=== PATIENT | female | born 1970 | race Two or more races ===

== ENCOUNTER 2020-10-05 18:18 | Emergency (ER) | payer MEDICAID, OTHER ==
[~2020-10-05] VITALS: Ht 157.5 cm; Wt 89.8 kg
[2020-10-05] MEDS ORDERED: ATORVASTATIN CA20 MG ORAL (18:44)
--- NOTE | 2020-10-05 19:30 | NUR ---
ED Nurse Note: Pt walked into the ED with c/o fall about a week ago. Pt tripped over a hole and fell backward. Pt c/o pain in the posterior head radiating to the neck with dizzy spell. No LOC. Patient fever/chills, N/V/D. Patient is AAOX4 and ambulatory. Used [employer]
--- NOTE | 2020-10-05 19:31 | NUR ---
ED Nurse Note: ERPA at bedside
[2020-10-05 19:40] VITALS: BP 135/74
--- NOTE | 2020-10-05 20:18 | Diagnostic Imaging Report ---
EXAM: CT Cervical Spine Without Intravenous Contrast CLINICAL HISTORY: TRAUMA TECHNIQUE: Axial computed tomography images of the cervical spine without intravenous contrast. CTDI is 20.1 mGy and DLP is 448.2 mGy-cm. One or more of the following dose reduction techniques were used: automated exposure control, adjustment of the mA and/or kV according to patient size, use of iterative reconstruction technique. COMPARISON: No relevant prior studies available. FINDINGS: Vertebrae: Sclerotic density within the posterior T1 vertebral body. 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 No acute fracture. Discs/spinal canal/neural foramina: No acute findings. No spinal canal stenosis. Soft tissues: Unremarkable. IMPRESSION: 1. No acute fracture or traumatic malalignment of the cervical spine. 2. Sclerotic density within the posterior T1 vertebral body. In the absence of known malignancy this likely represents a bone island.
--- NOTE | 2020-10-05 20:21 | Diagnostic Imaging Report ---
EXAM: CT Head Without Intravenous Contrast CLINICAL HISTORY: TRAUMA TECHNIQUE: Axial computed tomography images of the head/brain without intravenous contrast. CTDI is 53.4 mGy and DLP is 1080.2 mGy-cm. One or more of the following dose reduction techniques were used: automated exposure control, adjustment of the mA and/or kV according to patient size, use of iterative reconstruction technique. COMPARISON: No relevant prior studies available. FINDINGS: Brain: Unremarkable. No hemorrhage. No significant white matter disease. No edema. Ventricles: Unremarkable. No ventriculomegaly. Bones/joints: Unremarkable. No acute fracture. Soft tissues: Unremarkable. Sinuses: Unremarkable as visualized. No acute sinusitis. Mastoid air cells: Unremarkable as visualized. No mastoid effusion. IMPRESSION: Normal head/brain CT.
--- NOTE | 2020-10-05 20:31 | Emergency Room Report ---
History of Present Illness General Chief Complaint: Headache Source: Patient Present Illness HPI 50-year-old female with no signal past medical history here complaining of headache and neck pain status post fall. Patient reports a she slipped and fell hit the side of her head. Complains of a 3 out of 10 neck pain however has full range of motion. Nexus criteria is negative. Head appears to be atraumatic. Denies loss of consciousness, dizziness, blurry vision or nausea. Reports that when she first fell she feels slightly dizzy however has been feeling better. Patient has a steady gait, speaks in full sentences. Denies tingling or numbness. Has not taken medication for symptom relief. Allergies: Coded Allergies: No Known Allergies (Unverified , 10/05/20) COVID-19 Screening Contact w/high risk pt: No Experienced COVID-19 symptoms?: Yes COVID-19 Testing performed DIRECTOR TALENT MANAGEMENT: No Patient History Past Medical History: see triage record Past Surgical History: none Pertinent Family History: none Now: No Immunizations: UTD Reviewed Nursing Documentation: PMH: Agreed; PSxH: Agreed Nursing Documentation-PMH Past Medical History: No History, Except For Review of Systems All Other Systems: negative except mentioned in HPI Physical Exam Vital Signs Date Time Temp Pulse Resp B/P (MAP) Pulse Ox O2 Delivery O2 Flow Rate FiO2 10/05/20 18:37 98.1 74 16 135/74 (94) 97 Room Air Sp02 EP Interpretation: reviewed, normal General Appearance: no apparent distress, alert, GCS 15, non-toxic Head: normocephalic, atraumatic ENT: hearing grossly normal, normal pharynx, no angioedema, normal voice Neck: full range of motion, supple, thyroid normal, no meningismus, no bony tend, supple/symm/no masses Respiratory: chest non-tender, lungs clear, normal breath sounds, speaking full sentences Cardiovascular #1: regular rate, rhythm, no edema Gastrointestinal: normal bowel sounds, non tender, soft, non-distended, no guarding, no rebound Musculoskeletal: back normal, pelvis stable, gait/station normal Neurologic: alert, motor strength/tone normal, oriented x3, sensory intact, responsive, speech normal Psychiatric: judgement/insight normal, memory normal, mood/affect normal, no suicidal/homicidal ideation Skin: no rash Lymphatic: normal inspection Medical Decision Making PA Attestation All diagnoses and treatment plans were reviewed and discussed with my supervising physician Dr. Ruiz Diagnostic Impression: Primary Impression: Head contusion Additional Impression: Cervical strain ER Course 50-year-old female with no signal past medical history here complaining of heada sanna and neck pain status post fall. Patient reports a she slipped and fell hit the side of her head. Complains of a 3 out of 10 neck pain however has full range of motion. Nexus criteria is negative. Head appears to be atraumatic. Denies loss of consciousness, dizziness, blurry vision or nausea. Reports that when she first fell she feels slightly dizzy however has been feeling better. Patient has a steady gait, speaks in full sentences. Denies tingling or numbness. Has not taken medication for symptom relief. Ddx considered but are not limited to: cerebral hematoma, concussion, skull fracture, head contusion Vital signs: are WNL, pt. is afebrile H&PE are most consistent with: Head contusion, cervical strain ORDERS: head CT no contrast, CT C-spine no contrast, Robaxin, Motrin ED INTERVENTIONS: Deferred medication ED DISCHARGE: At this time pt. is stable for d/c to home. Will provide printed patient care instructions, and any necessary prescriptions. Care plan and follow up instructions have been discussed with the patient prior to discharge. Patient take medication as directed, follow primary care provider, if worsening symptoms return to the emergency room CT/MRI/US Diagnostic Results CT/MRI/US Diagnostic Results #1: Imaging Test Ordered: CT head no contrast Impression COMPARISON: No relevant prior studies available. FINDINGS: Brain: Unremarkable. No hemorrhage. No significant white matter disease. No edema. Ventricles: Unremarkable. No ventriculomegaly. Bones/joints: Unremarkable. No acute fracture. Soft tissues: Unremarkable. Sinuses: Unremarkable as visualized. No acute sinusitis. Mastoid air cells: Unremarkable as visualized. No mastoid effusion. IMPRESSION: Normal head/brain CT. CT/MRI/US Diagnostic Results #2: Imaging Test Ordered: CT C spine no contrast Impression COMPARISON: No relevant prior studies available. FINDINGS: Vertebrae: Sclerotic density within the posterior T1 vertebral body. 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 No acute fracture. Discs/spinal canal/neural foramina: No acute findings. No spinal canal stenosis. Soft tissues: Unremarkable. IMPRESSION: 1. No acute fracture or traumatic malalignment of the cervical spine. 2. Sclerotic density within the posterior T1 vertebral body. In the absence of known malignancy this likely represents a bone island. Last Vital Signs Date Time Temp Pulse Resp B/P (MAP) Pulse Ox O2 Delivery O2 Flow Rate FiO2 10/05/20 19:40 98.1 16 135/74 97 Room Air 10/05/20 18:37 74 Disposition: HOME, SELF-CARE Condition: Stable Scripts Ibuprofen* (MOTRIN*) 600 Mg Tablet 600 MG ORAL Q8H PRN for FOR PAIN, #30 TAB 0 Refills Prov: Tamera Molina 10/05/20 Methocarbamol* (ROBAXIN-500*) 500 Mg Tablet 500 MG ORAL TID PRN for For Pain, #15 TAB 0 Refills Prov: Tamera Molina 10/05/20 Referrals: [facility]ERR[facility] (PCP) Patient Instructions: Cervical Strain and Sprain With Rehab-Sports[facility], Facial or Scalp Contusion, [id number] Additional Instructions: Take medication as directed, follow with your primary care provider, if worsening symptoms return to the emergency room Tamera Molina Oct 05, 2020 20:31
[2020-10-05] MEDS ORDERED: ROBAXIN-500MG ORAL (20:32)
[2020-10-05] MEDS ORDERED: IBUPROFEN600 M1 ORAL (20:32)
[2020-10-05 20:41] VITALS: BP 135/74
--- NOTE | 2020-10-05 20:42 | NUR ---
ED Nurse Note: Patient cleared by health care Provider for discharge. DC instructions/prescription was given and explained to pt and verbalized understanding of teachings. All medical deviecs such as ID band removed. Pt is AAO x4, ambulatory and left with all personal belongings.
== END 2020-10-05 20:43 | disposition home or self-care (01) ==
LOC: EMR 19:11
DX: S00.93XA Contusion of unspecified part of head, initial encounter (principal); S16.1XXA Strain of muscle, fascia and tendon at neck level, initial encounter; W01.10XA Fall on same level from slipping, tripping and stumbling with subsequent striking against unspecified object, initial encounter; Y93.9 Activity, unspecified; Y92.9 Unspecified place or not applicable
CPT/HCPCS: 70450; 72125; Z7502; 99284